=== PATIENT | female | born 1980 | race Caucasian/White ===

== ENCOUNTER 2016-10-02 17:03 | Inpatient (IN) | payer BC ==
[2016-10-02 18:05] LABS: Hematocrit 39 % (35-47); Mean Corpuscular HGB Conc 34 g/dl (31-36); Mean Corpuscular Hemoglobin 30 pg (27-31); Mean Corpuscular Volume 90 fL (80-97); Mean Platelet Volume 9 um3 (7.4-10.4); Red Blood Count 4.31 10^6/ul (4.0-5.4); Red Cell Distribution Width 13 % (10.5-15)
[2016-10-02] MEDS ORDERED: Oxytocin in LR* 20 UNITS/1,000 ML BAG IVPB SCH (19:00)
[2016-10-02] MEDS ORDERED: Calcium Carbonate CHEW TAB* 500 MG (TUMS) PO PRN ×2 (22:29→22:45)
[2016-10-03] MEDS ORDERED: OBEPIDURAL* 250 ML ONE (01:20)
[2016-10-03] MEDS ORDERED: Sodium Citrate/Citric Acid* 15 ML UDC PO PRN (02:03)
[2016-10-03] MEDS ORDERED: Famotidine TAB* 20 MG PO PRN (02:03)
[2016-10-03] MEDS ORDERED: Phenylephrine IV* 40 MCG/ML 10 ML SYRINGE IV PUSH PRN (02:03)
[2016-10-03] MEDS ORDERED: OBEPIDURAL* 250 ML EPIDURAL SCH (03:00)
[2016-10-03] MEDS ORDERED: Witch Hazel PAD* JAR TOPICAL PRN (03:04)
[2016-10-03] MEDS ORDERED: Acetaminophen TAB* 325 MG PO PRN (03:04)
[2016-10-03] MEDS ORDERED: Glycerin ADULT SUPP PR PRN (03:04)
[2016-10-03] MEDS ORDERED: oxyCODONE/Acetamin 5/325 MG* TAB PO PRN (03:04)
[2016-10-03] MEDS ORDERED: Measles, Mumps,Rubella VACC* 0.5 ML/VIAL SUBCUT ONE ×2 (03:04→09:00)
[2016-10-03] MEDS ORDERED: Oxytocin in LR* 20 UNITS/1,000 ML BAG IVPB SCH (04:00)
[2016-10-03] MEDS: Ibuprofen TAB* 600 MG PO PRN ×3 (05:11→21:45)
[2016-10-03] MEDS: Dibucaine 1% 28.35 GM TUBE PR PRN (05:12)
[2016-10-03] MEDS ORDERED: Lidocaine 1% MPF* 2 ML VIAL ONE (05:15)
[2016-10-03] MEDS: Docusate CAP* 100 MG PO SCH ×3 (07:54→21:45)
[2016-10-03] MEDS ORDERED: Simethicone CHEW TAB* 80 MG PO SCH (08:30)
[2016-10-04] MEDS: Ibuprofen TAB* 600 MG PO PRN ×2 (07:34→14:04)
[2016-10-04] MEDS: Docusate CAP* 100 MG PO SCH ×3 (07:35→19:35)
[2016-10-04 08:46] LABS: Hematocrit 41 % (35-47); Hemoglobin 13.4 g/dl (12.0-16.0); Mean Corpuscular HGB Conc 33 g/dl (31-36); Mean Corpuscular Hemoglobin 30 pg (27-31); Mean Corpuscular Volume 92 fL (80-97); Mean Platelet Volume 9 um3 (7.4-10.4); Red Blood Count 4.43 10^6/ul (4.0-5.4); Red Cell Distribution Width 13 % (10.5-15); White Blood Count 12.9 10^3/ul (3.5-10.8)
[2016-10-04] MEDS: Dibucaine 1% 28.35 GM TUBE PR PRN (11:48)
[2016-10-04] MEDS: Ferrous Gluconate TAB* 324 MG TAB PO SCH ×2 (12:07→19:59)
[2016-10-05 03:44] VITALS: BP 106/55
== END 2016-10-05 02:20 | disposition home or self-care (01) | DRG 560 ==
LOC: MCHOBOUT 17:03 → MCHOB 17:18
PROVIDERS: ADMIT Midwife; ATTEND Midwife
PROC: 10E0XZZ Delivery of Products of Conception, External Approach (ICD-10-PCS; principal; 2016-10-03)
PROC: 3E033VJ Introduction of Other Hormone into Peripheral Vein, Percutaneous Approach (ICD-10-PCS; 2016-10-03)
PROC: 0KQM0ZZ Repair Perineum Muscle, Open Approach (ICD-10-PCS; 2016-10-03)
DX: O48.0 Post-term pregnancy (principal); O41.03X0 Oligohydramnios, third trimester, not applicable or unspecified; O70.1 Second degree perineal laceration during delivery; O99.824 Streptococcus B carrier state complicating childbirth; Z3A.41 41 weeks gestation of pregnancy; Z37.0 Single live birth
CPT/HCPCS: 36415; 85025; 86850; 86900; 86901; 88307; 90707; A9270-GY